=== PATIENT | male | born 1930 | race Caucasian/White ===

== ENCOUNTER 2016-07-20 14:37 | Inpatient (IN) | payer MEDICARE, BC ==
[~2016-07-20] VITALS: Ht 180.3 cm; Wt 70.0 kg
[~2016-07-20 14:37] MED LIST: ACET650T85 PO; AMLO5TAB4 PO; ASPI-535 PO; DEXT1CAP PO; DIVA500T33 PO; DOCU-159 PO; DONE5TAB46 PO; FINA5TAB PO; GABA300C PO; MAGN400O4 PO; MEMA5TAB PO; NA P118E PR; OMEP20CA16 PO; QUET25TA26 PO; SERT25TA PO; SIMV40TA2 PO; SYN75 PO; ZOLP5TAB PO
[2016-07-20] MEDS ORDERED: SOD CHLORIDE 0.9% 1,000 ML IV STA (15:24)
[2016-07-20 15:27] VITALS: Ht 180.3 cm; Wt 70.0 kg
[2016-07-20] MEDS ORDERED: SODIUM CHLORIDE 0.9% 1L BAG IV* STA (15:30)
[2016-07-20] MEDS ORDERED: AMLO2.5T2 PO (16:00)
[2016-07-20] MEDS ORDERED: AMIN30LI PO (16:01)
[2016-07-20] MEDS ORDERED: ASCO500C7 PO (16:03)
[2016-07-20] MEDS ORDERED: UDCOL PO (16:03)
[2016-07-20] MEDS ORDERED: SIMV20TA PO (16:05)
[2016-07-20] MEDS ORDERED: MULTI PO (16:06)
[2016-07-20] MEDS ORDERED: ONDA4TAB8 PO (16:07)
[2016-07-20] MEDS ORDERED: OXCA300T3 PO (16:08)
--- NOTE | 2016-07-20 16:08 | RADRPT ---
PROCEDURE: XR Chest. CLINICAL INDICATION: Weakness. TECHNIQUE: Portable AP supine view of the chest was obtained. COMPARISON: 09/14/2014 FINDINGS: The cardiomediastinal silhouette is minimally enlarged. No acute infiltrates are present, stable le ft lower lobe scarring is suggested. The left costophrenic angle is blunted and may reflect a chron ic left pleural effusion similar to the prior study versus chronic pleural parenchymal reaction. Th ere is no evidence of right pleural effusion. No pneumothorax is present. Old healed right seventh rib fractures again noted. There is no evidence of acute osseous abnormality. Calcification within the aorta is seen. RPTAT:HJJR IMPRESSION: 1. Mild cardiomegaly without congestive heart failure pattern. 2. Likely left lower lobe scarring and pleural parenchymal reaction blunting the left costophrenic a ngle versus a small left pleural effusion, findings similar to the study of 09/14/2014. 3. Aortic atherosclerosis is present. Physician Penelope Date Time Electronically viewed and signed by Physician Penelope on 07/20/2016 16:08 /
[2016-07-20] MEDS ORDERED: PANT40TA3 PO (16:10)
[2016-07-20] MEDS ORDERED: RIS1 PO (16:11)
[2016-07-20] MEDS ORDERED: RISP0.5T21 PO (16:14)
[2016-07-20] MEDS ORDERED: POTA20TA96 PO (16:15)
[2016-07-20] MEDS ORDERED: FURO40TA4 PO (16:15)
--- NOTE | 2016-07-20 16:46 | RADRPT ---
PROCEDURE: Noncontrast CT Head. CLINICAL INDICATION: Altered level of consciousness. TECHNIQUE: Noncontrast CT of the head was obtained. The administered radiation dose was CTDI vol = 45.01 mGy, DLP = 900.28 mGy-cm. One or more of the following dose reduction techniques were used: Au tomated exposure control, Adjustment of the mA and/or kV according to patient size, or Use of iterat viviana reconstruction technique. COMPARISON: There are no similar studies submitted for comparison. FINDINGS: There is moderate generalized cerebral volume loss. There is mild cerebellar volume loss. There is mild to moderate periventricular hypoattenuation suggesting chronic microvascular ischemic changes. There are mild vascular calcifications within the intracranial carotid arteries. There is an empty sella turcica. There is a 5 mm coarse calcification within the right parietal dural likely representing a small meningioma (image 32 series 2). There is no loss of montemayor-white differentiation to suggest acute territorial infarction. There is no acute intracranial hemorrhage or extra-axial fluid collection. There is no mass effect. No midline shift is identified. The patient is status post right lens surgery. The paranasal sinuses are well aerated. No destructive osseous lesion is identified. IMPRESSION: 1. No acute intracranial hemorrhage or extra-axial fluid collection. 2. Moderate cerebral and mild cerebellar volume loss. 3. Mild to moderate chronic microvascular ischemic changes. 4. Probable 5 mm calcified right parietal meningioma. 5. Empty sella turcica. Further findings as detailed above. RPTAT: HVF .Michael Vasquez MD, MD Date Time Electronically viewed and signed by .Michael Vasquez MD, on 07/20/2016 16:46 .F/
[2016-07-20 18:02] LABS: BASOPHILS % 0.3 % (0.0-2.0); EOSINOPHILS # 0.1 10^3/ul (0.0-0.5); HEMATOCRIT 47.6 % (42.0-52.0); HEMOGLOBIN 15.8 g/dl (14.0-18.0); LYMPHOCYTES # 1.1 10^3/ul (0.8-2.9); LYMPHOCYTES % 16.5 % (15.0-51.0); MEAN CORPUSCULAR HGB CONC 33.2 g/dl (32.0-37.0); MEAN CORPUSCULAR VOLUME 93.4 fl (82.0-101.0); MONOCYTE # 0.5 10^3/ul (0.3-0.9); MONOCYTES % 7.4 % (0.0-11.0); NEUTROPHIL # 4.8 10^3/ul (1.6-7.5); NEUTROPHILS % 73.8 % (39.0-77.0); PLATELET COUNT 411 10^3/UL (140-440); UNCORRECTED WBC 6.5 10^3/ul (4.8-10.8); WHITE BLOOD COUNT 6.5 10^3/ul (4.8-10.8)
[2016-07-20 18:03] LABS: CONDITION 1; LH ANALYZER COMMENTS 1
[2016-07-20 18:09] LABS: INR 1.1; PROTIME 14.2 Sec (12.2-14.2); PT RATIO 1.1
[2016-07-20 18:10] LABS: PARTIAL THROMBOPLASTIN TIME 31.5 Sec (25.0-35.0)
[2016-07-20 18:40] LABS: ADD UMIC NO; URINE BILIRUBIN (Dip) NEGATIVE (NEGATIVE); URINE BLOOD (Dip) NEGATIVE (NEGATIVE); URINE COLOR YELLOW (YELLOW); URINE GLUCOSE (Dip) NEGATIVE (NEGATIVE); URINE KETONES (Dip) NEGATIVE (NEGATIVE); URINE LEUKOCYTE ESTERASE (Dip) NEGATIVE (NEGATIVE); URINE NITRITE (Dip) NEGATIVE (NEGATIVE); URINE TOTAL PROTEIN (Dip) NEGATIVE (NEGATIVE); URINE UROBILINOGEN (Dip) 0.2 E.U./dL (0.1-1.0)
[2016-07-20 18:58] LABS: ALBUMIN 3.5 g/dl (3.3-4.9)
[2016-07-20 18:59] LABS: POTASSIUM 4.6 mmol/L (3.5-5.1)
[2016-07-20 19:01] LABS: BILIRUBIN,INDIRECT 0.2 mg/dl (0-1.1); BILIRUBIN,TOTAL 0.2 mg/dl (0.2-1.3); CREATININE 2.17 mg/dl (0.61-1.24)
[2016-07-20 19:02] LABS: ALBUMIN/GLOBULIN RATIO 0.94; CALCIUM 8.5 mg/dl (8.4-10.2); TOTAL PROTEIN 7.2 g/dl (6.1-8.1)
[2016-07-20] MEDS ORDERED: SOD CHLORIDE 0.9% 1,000 ML IV SCH (19:28)
[2016-07-20] MEDS ORDERED: ACETAMINOPHEN 325 MG TAB PO PRN (19:30)
[2016-07-20] MEDS ORDERED: ONDANSETRON 4 MG INJ IV PRN (19:30)
--- NOTE | 2016-07-20 19:33 | ERA ---
ER Documentation Chief Complaint Date/Time DATE: 07/20/16 TIME: 19:30 Chief Complaint aloc not responding like he normally does with nurses, vomited this am HPI This is an 85-year-old male who presents to the emergency room after being brought in by EMS from his halfway for evaluation of generalized weakness and altered mental status. According to the nurses at the halfway this patient has been vomiting and has had diarrhea for the past 3 days. He does have a history of C. difficile colitis. This patient is unable to give a detailed history secondary to his clinical condition at this time. He is alert and oriented to person only. This is his baseline according to halfway notes. ROS All systems reviewed and are negative except as per history of present illness. Medications Home Meds Reported Medications Potassium Chloride* (Potassium Chloride*) 20 Meq Tablet.er, 40 MEQ PO DAILY, TAB.SA 07/20/16 Furosemide* (Furosemide*) 40 Mg Tablet, 40 MG PO DAILY, TAB 07/20/16 Risperidone* (Risperdal*) 0.5 Mg Tablet, 0.5 MG PO DAILY, TAB IN ADDITION TO BEDTIME DOSAGE OF 1.5MG 07/20/16 Risperidone* (Risperdal*) 1 Mg Tablet, 1.5 MG PO QHS, TAB 07/20/16 Pantoprazole* (Protonix*) 40 Mg Tablet.dr, 40 MG PO DAILY, TAB 07/20/16 Oxcarbazepine* (Trileptal*) 300 Mg Tablet, 300 MG PO BID, TAB 07/20/16 Ondansetron Hcl* (Zofran*) 4 Mg Tablet, 4 MG PO TID Y for NAUSEA AND/OR VOMITING , TAB BEFORE MEALS 07/20/16 Multivitamins* (Theragran*) 1 Tab Tab, 1 TAB PO DAILY, TAB 07/20/16 Simvastatin* (Zocor*) 20 Mg Tablet, 20 MG PO QHS, #30 TAB 07/20/16 Ascorbic Acid* (Vitamin C*) 500 Mg Capsule.sa, 500 MG PO DAILY, CAP 07/20/16 Docusate Sodium* (Colace* Liq) 50 Mg/5 Ml Liquid, 100 MG PO DAILY, EA 07/20/16 Amino Acids/Protein Hydrolys (PRO-STAT LIQUID) 30 Ml Liquid.pkt, 30 ML PO DAILY 07/20/16 Amlodipine Besylate* (Norvasc*) 2.5 Mg Tablet, 2.5 MG PO DAILY, TAB 07/20/16 Na Phos,M-B/Na Phos,Di-Ba* (Fleet* Enema) 118 Ml Enema, 118 ML HI every 3 days Y for CONSTIPATION, ENEMA 09/09/14 Magnesium Hydroxide* (Milk Of Magnesia*) 400 Mg/5 Ml Oral.susp, 30 ML PO DAILY Y for CONSTIPATION, ML 01/18/14 Gabapentin* (Neurontin*) 300 Mg Capsule, 300 MG PO TID, CAP 01/18/14 Aspirin Ec (Aspir 81) 81 Mg Tablet.dr, 81 MG PO DAILY, TAB 01/18/14 Acetaminophen (Tylenol 8 Hour) 650 Mg Tablet.sa, 650 MG PO Q8 03/20/11 Levothyroxine Sodium* (Synthroid*) 75 Mcg Tablet, 75 MCG PO DAILY 03/20/11 Finasteride* (Proscar*) 5 Mg Tablet, 5 MG PO DAILY 03/20/11 Discontinued Reported Medications Simvastatin* (Zocor*) 40 Mg Tablet, 40 MG PO HS, TAB 09/09/14 Sertraline Hcl* (Zoloft*) 25 Mg Tablet, 25 MG PO DAILY, TAB 09/09/14 Dextromethorphan Hbr/Quinidine (NUEDEXTA 20-10 MG CAPSULE) 1 Each Capsule, 1 EACH PO BID 09/09/14 Quetiapine Fumarate* (Seroquel*) 25 Mg Tablet, 12.5 MG PO HS, TAB 09/09/14 Docusate Sodium* (Docusate Sodium*) 100 Mg Capsule, 100 MG PO BID, CAP 01/18/14 Zolpidem Tartrate* (Ambien*) 5 Mg Tablet, 5 MG PO HS Y for INSOMNIA, TAB 01/18/14 Omeprazole* (Omeprazole*) 20 Mg Capsule.dr, 20 MG PO DAILY 03/20/11 Memantine* (Namenda*) 5 Mg Tablet, 5 MG PO BID 03/20/11 Divalproex Sodium (Depakote) 500 Mg Tablet.dr, 500 MG PO BID 03/20/11 Amlodipine Besylate* (Norvasc*) 5 Mg Tablet, 5 MG PO DAILY 03/20/11 Donepezil* (Aricept*) 5 Mg Tablet, 5 MG PO HS 03/20/11 Allergies Allergies: Coded Allergies: Penicillins (Verified Allergy, Unknown, 07/20/16) Sulfa (Sulfonamide Antibiotics) (Verified Allergy, Unknown, 07/20/16) PMhx/Soc History of Surgery: Yes (R Hemicolectomy, Gastric Sx) Hx Neurological Disorder: Yes (Dementia) Hx Cardiac Disorders: Yes (HTN, Hyperlipidemia) Hx Psychiatric Problems: Yes (Tardive Dyskinesia, Depression) Smoking Status: Unknown if ever smoked Physical Exam Vitals Vital Signs Date Time Temp Pulse Resp B/P Pulse Ox O2 Delivery O2 Flow Rate FiO2 07/20/16 18:00 75 22 145/83 95 Room Air 07/20/16 16:18 Nasal Cannula 2 07/20/16 16:00 75 22 141/82 95 Room Air 07/20/16 15:27 97.5 78 20 125/79 94 Physical Exam INITIAL VITAL SIGNS: Reviewed by me GENERAL: The patient is frail-appearing older gentleman HEENT: Severely dry mucous membranes, pupils equal, round, and reactive to light. EOMI. There is no scleral icterus. NECK: C-spine is soft and supple, there is no meningismus. There is no cervical lymphadenopathy. LUNGS: Clear to auscultation bilaterally. There are no rales, wheezes or rhonchi. HEART: Regular rate and rhythm, no murmurs, clicks, rubs or gallops. ABDOMEN: Soft, non-tender, non-distended. There are bowel sounds in all four quadrants. No rebound or guarding. EXTREMITIES: There is no peripheral cyanosis or edema. No focal swelling or erythema. NEUROLOGICAL: The patient moves all four extremities with 5/5 strength. Alert and oriented to person only SKIN: Significantly increased skin turgor, there is no apparent rash or petechiae. HEME/LYMPHATIC: There is no evidence of excessive bruising or lymphedema. PSYCHIATRIC: The patient does not appear anxious or depressed. Result Diagram: 07/20/16 1738 07/20/16 1738 Results 24 hrs Laboratory Tests Test 07/20/16 17:30 07/20/16 17:38 Urine Bilirubin NEGATIVE Urine Clarity CLEAR Urine Color YELLOW Urine Glucose NEGATIVE% Urine Hemoglobin NEGATIVE Urine Ketones NEGATIVE Urine Leukocyte Esterase NEGATIVE Urine Nitrite NEGATIVE Urine Specific [place] 1.020 Urine Total Protein NEGATIVE Urine Urobilinogen 0.2 E.U./dL Urine pH 5.5 Activated Partial Thromboplast Time 31.5Sec Alanine Aminotransferase (ALT/SGPT) 26IU/L Albumin 3.5g/dl Albumin/Globulin Ratio 0.94 Alkaline Phosphatase 112IU/L Anion Gap 21 Aspartate Amino Transf (AST/SGOT) 30IU/L Basophils # 0.010^3/ul Basophils % 0.3% Blood Morphology Comment Blood Urea Nitrogen 45mg/dl Calcium Level 8.5mg/dl Carbon Dioxide Level 26mmol/L Chloride Level 117mmol/L Creatine Kinase 157IU/L Creatinine 2.17mg/dl Direct Bilirubin 0.00mg/dl Eosinophils # 0.110^3/ul Eosinophils % 2.0% Globulin 3.70g/dl Glucose Level 104mg/dl Hematocrit 47.6% Hemoglobin 15.8g/dl INR International Normalized Ratio 1.10 Indirect Bilirubin 0.2mg/dl Lactic Acid Level 2.4mmol/L Lipase 64U/L Lymphocytes # 1.110^3/ul Lymphocytes % 16.5% Mean Corpuscular Hemoglobin 31.0pg Mean Corpuscular Hemoglobin Concent 33.2g/dl Mean Corpuscular Volume 93.4fl Mean Platelet Volume 8.0fl Monocytes # 0.510^3/ul Monocytes % 7.4% Neutrophils # 4.810^3/ul Neutrophils % 73.8% Nucleated Red Blood Cells # 0.010^3/ul Nucleated Red Blood Cells % 0.0/100WBC Platelet Count 63986^3/UL Potassium Level 4.6mmol/L Prothrombin Time 14.2Sec Prothrombin Time Ratio 1.1 Red Blood Count 5.1010^6/ul Red Cell Distribution Width 16.0% Sodium Level 159mmol/L Total Bilirubin 0.2mg/dl Total Protein 7.2g/dl Troponin I < 0.012ng/ml White Blood Count 6.510^3/ul Current Medications Medications (Trade) Dose Ordered Sig/Sorin Route PRN Reason Start Time Stop Time Status Last Admin Dose Admin Sodium Chloride (NS) 1,000 ml @ 1,000 mls/hr Q1H STAT IV 07/20/16 15:24 07/20/16 16:23 DC 07/20/16 15:24 Sodium Chloride (NS) 2,170 ml BOLUS OVER 2 HOURS STAT IV* 07/20/16 15:30 2/18/17 15:31 DC 07/20/16 17:00 Procedures/MDM CT head without: 1. No acute intracranial hemorrhage or extra-axial fluid collection. 2. Moderate cerebral and mild cerebellar volume loss. 3. Mild to moderate chronic microvascular ischemic changes. 4. Probable 5 mm calcified right parietal meningioma. 5. Empty sella turcica. Chest X-ray 1V Interpreted by me: Soft Tissue: Cardiomegaly Bones: No acute abnormalities Mediastinum/Cardiac Silhouette/Lungs: Cardiomegaly This 85-year-old male presents to the emergency room for evaluation of altered mental status and generalized weakness. He is normally alert and oriented to person only and he is alert and oriented to person only on my examination. This patient did have a severely dry mucous membranes with increased skin turgor consistent with dehydration. Lab work was obtained including blood and urine cultures. Lab work does confirm my suspicion of dehydration, and this patient also has acute renal failure. This patient was given 2 L of IV normal saline, and was given 1 L of IV D5 half-normal saline I have spoken to this patient's primary care physician, Dr. Steel who is in agreement with the plan for admission, IV fluid hydration, and repeat blood work to assess renal function. This patient had a CT of the head which does not show any acute strokes. This patient is not in a timeframe for TPA. He is hemodynamically stable and appropriate for MedSurg at this time. Departure Diagnosis: Primary Impression: Acute renal failure Additional Impressions: Severe dehydration Hypernatremia Acute prerenal azotemia Condition: JACQUELYN Marquez DO Jul 20, 2016 19:33
[2016-07-20] MEDS ORDERED: DEXTROSE 5%-0.45% NACL 1,000 ML IV ONE (19:34)
[2016-07-20 21:00] VITALS: TEMP 97.7
[2016-07-21 01:35] VITALS: BP 139/63; RESP 16
[2016-07-21] MEDS ORDERED: MAGNESIUM HYDROXIDE 30ML CUP PO PRN (02:30)
[2016-07-21] MEDS ORDERED: NA PHOSPHATE/BIPHOS 133 ML ENEMA PR PRN (02:30)
[2016-07-21] MEDS ORDERED: SOD CHLORIDE 0.45% 1,000 ML IV SCH (02:30)
[2016-07-21] MEDS ORDERED: ALBUTEROL 0.5% (NEB) 2.5 MG/0.5 ML AMP HHN PRN (02:30)
[2016-07-21] MEDS ORDERED: ONDANSETRON 4 MG INJ IV PRN (02:30)
[2016-07-21] MEDS: PANTOPRAZOLE (EC) 40 MG TAB PO SCH (06:19)
[2016-07-21 07:25] LABS: POTASSIUM 3.8 mmol/L (3.5-5.1)
[2016-07-21 07:27] VITALS: BP 151/71; RESP 18
[2016-07-21 07:27] LABS: ALBUMIN/GLOBULIN RATIO 0.9; CREATININE 1.51 mg/dl (0.61-1.24); TOTAL PROTEIN 6.3 g/dl (6.1-8.1)
[2016-07-21 07:28] LABS: CALCIUM 7.5 mg/dl (8.4-10.2); MAGNESIUM 2.5 mg/dl (1.7-2.5)
[2016-07-21 07:32] LABS: BASOPHILS % 0.6 % (0.0-2.0); EOSINOPHILS # 0.2 10^3/ul (0.0-0.5); EOSINOPHILS % 4.3 % (0.0-7.0); HEMATOCRIT 38.3 % (42.0-52.0); HEMOGLOBIN 12.8 g/dl (14.0-18.0); LYMPHOCYTES # 1.3 10^3/ul (0.8-2.9); LYMPHOCYTES % 27.5 % (15.0-51.0); MEAN CORPUSCULAR HEMOGLOBIN 31.1 pg (29.0-33.0); MEAN CORPUSCULAR HGB CONC 33.3 g/dl (32.0-37.0); MEAN CORPUSCULAR VOLUME 93.2 fl (82.0-101.0); MEAN PLATELET VOLUME 7.8 fl (7.4-10.4); MONOCYTE # 0.5 10^3/ul (0.3-0.9); MONOCYTES % 11.6 % (0.0-11.0); NEUTROPHIL # 2.6 10^3/ul (1.6-7.5); PLATELET COUNT 360 10^3/UL (140-440); RED BLOOD COUNT 4.11 10^6/ul (4.70-6.10); RED CELL DISTRIBUTION WIDTH 15.8 % (11.5-14.5); UNCORRECTED WBC 4.6 10^3/ul (4.8-10.8); WHITE BLOOD COUNT 4.6 10^3/ul (4.8-10.8)
[2016-07-21 07:39] LABS: CONDITION 1; LH ANALYZER COMMENTS 1
--- NOTE | 2016-07-21 07:55 | RADRPT ---
PROCEDURE: XR Chest. CLINICAL INDICATION: COUGH TECHNIQUE: Portable single view of the chest COMPARISON: 07/20 FINDINGS: Cardiomegaly and ectatic and tortuous aorta again seen. Lung volumes are slightly improved compared with prior with improved aeration of the left lower lobe. No focal infiltrate or pleural effusion. No overt congestive heart failure. IMPRESSION: Improved lung volumes. RPTAT: HLBE Josee Jo Physician Date Time Electronically viewed and signed by Josee Jo, Physician on 07/21/2016 07:55 DERRICK/
[2016-07-21] MEDS: CEFTRIAXONE 1 GM/50 ML (PMX) 50 ML IVPB SCH (10:07)
[2016-07-21] MEDS: DOCUSATE SODIUM 10 MG/ML (10ML CUP) PO SCH (10:07)
[2016-07-21] MEDS: ASPIRIN (EC) 81 MG TAB PO SCH (10:07)
[2016-07-21] MEDS: ASCORBIC ACID 500 MG TAB PO SCH (10:08)
[2016-07-21] MEDS: MULTIVITAMINS THERAPEUTIC TAB PO SCH (10:08)
[2016-07-21] MEDS: AMLODIPINE 2.5 MG TAB PO SCH (10:08)
[2016-07-21] MEDS: FINASTERIDE 5 MG TAB PO SCH (10:09)
[2016-07-21] MEDS: GABAPENTIN 300 MG CAP PO SCH ×3 (10:09→20:54)
[2016-07-21] MEDS: LEVOTHYROXINE 75 MCG TAB PO SCH (10:18)
[2016-07-21] MEDS: DEXTROSE 5% 1,000 ML IV SCH (15:53)
--- NOTE | 2016-07-21 16:51 | HP ---
DATE OF ADMISSION: 07/20/2016 CHIEF COMPLAINT AND HISTORY OF PRESENT ILLNESS: The patient is an 85-year-old gentleman who was bro ught in from the convalescent home with chief complaint of increasing generalized weakness, altered mental status, nausea, vomiting, diarrhea for the past 3 days. He has a prior history of C. dif col itis. His renal functions are stable about a week ago with a BUN of 14, creatinine 0.88. Test for C. diff done about a week ago was also negative. MEDICATIONS: Include: 1. Lasix. 2. Potassium. 3. Risperidone. 4. Pantoprazole. 5. Zofran. 6. Simvastatin. 7. Ascorbic acid. 8. Amlodipine. 9. Magnesium hydroxide. 10. Gabapentin. 11. Aspirin. 12. Levothyroxine. 13. Finasteride. ALLERGIES 1. PENICILLIN. 2. SULFA. PRIOR SURGERIES: Include right hemicolectomy, and he has long history of hypertension and hyperlipi demia. 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 Prior history of smoking. No histor y of alcohol abuse. He also has a progressive decline in his mental status. PHYSICAL EXAMINATION: GENERAL: The patient was found to be very lethargic. VITAL SIGNS: Blood pressure 126/80, afebrile. O2 sat 97% on 2 liters. HEENT: Head normocephalic. Moderate pallor without cyanosis. Tongue is coated, dry. NECK: Supple. No thyromegaly, bruits , or lymphadenopathy. CHEST: Revealed decreased breath sounds at the bases. HEART: S1, S2 heard with no definite gallops or murmurs. ABDOMEN: Soft, nontender. No hepatosplenomegaly, no rebound or guarding. EXTREMITIES: No edema. Stasis dermatitis, both lower extremities. Homans sign is negative. LABORATORY DATA: Sodium 159, potassium 4.6, BUN 45, creatinine 2.17. WBC 6.5, hematocrit 47.6, marv telet count 411,000. UA shows negative for ketones or nitrites. Chest x-ray done showed mild cardi omegaly, left lobe scarring noted, possible pleural effusion, left. CT of the brain shows no acute bleed, calcified right parietal meningioma. IMPRESSION: 1. Delirium with encephalopathy, likely related to severe hypernatremia with acute renal failure, m ostly prerenal component. 2. Possible underlying sepsis with increased lactic acidosis. 3. Chronic obstructive pulmonary disease. 4. Moderate dementia. 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 PLAN: Will start the patient on intravenous hydration. Closely observe for signs of aspiration. I ncrease free water intake. Empiric antibiotic therapy pending cultures. Closely observe for signs of failure and follow his condition along. Dictated By: CEZAR CASIANO MD SR/NTS Conf#: [id number] DID#: [id number]
[2016-07-21 20:12] VITALS: BP 152/80; RESP 16
[2016-07-21] MEDS: ATORVASTATIN 10 MG TAB PO SCH (20:54)
[2016-07-21] MEDS ORDERED: NON-FORMULARY/PATIENT OWN MED (Simvastatin* (Zocor*) 20 MG) PO SCH (21:00)
[2016-07-22] MEDS: DEXTROSE 5% 1,000 ML IV SCH ×3 (03:50→22:08)
[2016-07-22] MEDS: PANTOPRAZOLE (EC) 40 MG TAB PO SCH (05:44)
[2016-07-22 06:39] LABS: POTASSIUM 4.6 mmol/L (3.5-5.1)
[2016-07-22 06:41] LABS: CREATININE 1.04 mg/dl (0.61-1.24)
[2016-07-22 06:42] LABS: CALCIUM 8.3 mg/dl (8.4-10.2); MAGNESIUM 2.6 mg/dl (1.7-2.5)
[2016-07-22 07:39] VITALS: BP 160/88; RESP 18
--- NOTE | 2016-07-22 07:46 | RADRPT ---
PROCEDURE: XR Chest 1 view. CLINICAL INDICATION: Shortness of breath, pneumonia TECHNIQUE: AP views of the chest were obtained. COMPARISON: Yesterday FINDINGS: The heart is large. Calcified atherosclerosis is noted in the aorta. The lungs are hyperexpanded. Diffuse mild interstitial prominence in both lungs is unchanged. Linear scarring or atelectasis at the left lung base is stable. No consolidations are identified. No pneumothorax is seen. The osse ous structures are unchanged. IMPRESSION: Cardiomegaly with calcified atherosclerosis in the aorta. Hyperexpanded lungs with diffuse mild interstitial prominence in both lungs. Interstitial prominenc e could be chronic. Findings could reflect COPD. Linear atelectasis or scarring at the left lung base. RPTAT: AA .Yannick Lebron MD, Date Time Electronically viewed and signed by .Yannick Lebron MD, on 07/22/2016 07:46 .P/
[2016-07-22] MEDS ORDERED: VANCOMYCIN IV PER PHARMACY XX SCH (08:30)
[2016-07-22] MEDS ORDERED: VANCOMYCIN 1.75 GM in NS 500 ML IVPB SCH (09:30)
[2016-07-22] MEDS: CEFTRIAXONE 1 GM/50 ML (PMX) 50 ML IVPB SCH (09:39)
[2016-07-22] MEDS: DOCUSATE SODIUM 10 MG/ML (10ML CUP) PO SCH (09:39)
[2016-07-22] MEDS: ASCORBIC ACID 500 MG TAB PO SCH (09:39)
[2016-07-22] MEDS: MULTIVITAMINS THERAPEUTIC TAB PO SCH (09:39)
[2016-07-22] MEDS: GABAPENTIN 300 MG CAP PO SCH ×3 (09:40→21:41)
[2016-07-22] MEDS: FINASTERIDE 5 MG TAB PO SCH (09:40)
[2016-07-22] MEDS: ASPIRIN (EC) 81 MG TAB PO SCH (09:40)
[2016-07-22] MEDS: AMLODIPINE 2.5 MG TAB PO SCH (09:40)
[2016-07-22] MEDS: LEVOTHYROXINE 75 MCG TAB PO SCH (09:40)
--- NOTE | 2016-07-22 10:10 | PQ ---
Date/Time of Note Date/Time of Note DATE: 07/22/16 TIME: 10:04 Physician Query Documentation Clarification Dear Dr. Steel, A review of the medical record found a need for documentation clarification. H & P - Delirium with encephalopathy, likely related to severe hypernatremia with acute renal failure, mostly prerenal component. Please clarify/specify the above diagnosis( if known ) being treated. To facilitate accurate and complete coding, please favian ( x ) the suspected diagnosis that apply: ( ) Metabolic encephalopathy ( ) Toxic encephalopathy ( ) unable to determine ( ) Others Please provide your response by clicking edit document, making your choice ( x ), click ok/save and finally click sign. You may also document your response on your progress notes. Thank you for your time. Tolu Uribe RN, BSN, CCS, CCDS Clinical Engine Assembler Health Information Management, [facility] and Coding Services [phone] Room # 1525 - Coding [address]~ [address] TOLU URIBE Jul 22, 2016 10:10
[2016-07-22 10:33] LABS: HEMATOCRIT 44.4 % (42.0-52.0); HEMOGLOBIN 14.1 g/dl (14.0-18.0); LYMPHOCYTES # 1.3 10^3/ul (0.8-2.9); LYMPHOCYTES % 31.7 % (15.0-51.0); MEAN CORPUSCULAR HEMOGLOBIN 30.7 pg (29.0-33.0); MEAN CORPUSCULAR HGB CONC 31.8 g/dl (32.0-37.0); MEAN CORPUSCULAR VOLUME 96.5 fl (82.0-101.0); MEAN PLATELET VOLUME 10.6 fl (7.4-10.4); MONOCYTES % 13.9 % (0.0-11.0); NEUTROPHILS % 48.7 % (39.0-77.0); PLATELET COUNT 290 10^3/UL (140-440); RED CELL DISTRIBUTION WIDTH 15.3 % (11.5-14.5)
[2016-07-22 10:34] LABS: EOSINOPHILS # 0.2 10^3/ul (0.0-0.5); MONOCYTE # 0.6 10^3/ul (0.3-0.9)
--- NOTE | 2016-07-22 11:01 | PN ---
DATE: 07/22/2016 CHIEF COMPLAINT: The patient is more responsive today, occasional cough, no abdominal pain, no ches t pain or shortness of breath. On exam, patient is more responsive, recognized me. OBJECTIVE: VITAL SIGNS: Temperature 97.8, blood pressure 160/88, respiration 20 per minute, O2 sats 96% on 2 l iters. HEENT: Head normocephalic. CHEST: Revealed a few crackles. HEART: S1, S2 with no gallops. ABDOMEN: Soft, nontender, no hepatosplenomegaly. EXTREMITIES: No edema. LABORATORY DATA: BUN 24, creatinine 1.04. Sodium 157, magnesium 2.6. Blood cultures growing gram- positive cocci in clusters. IMPRESSION: 1. Bacteremia, ____ MRSA disease. 2. COPD. 3. Moderate dementia. 4. Hypernatremia with acute renal failure, improving. PLAN: We will start the patient on vancomycin pending further typing of the sensitivities. Follow up labs in a.m. Dictated By: CEZAR CASIANO MD, SR/PATSY Conf#: [id number] DID#: [id number]
[2016-07-22 20:27] VITALS: BP 137/67; RESP 20
[2016-07-22] MEDS: ATORVASTATIN 10 MG TAB PO SCH (21:41)
[2016-07-23] MEDS: PANTOPRAZOLE (EC) 40 MG TAB PO SCH (05:25)
[2016-07-23 06:54] LABS: BASOPHILS % 0.4 % (0.0-2.0); EOSINOPHILS # 0.2 10^3/ul (0.0-0.5); EOSINOPHILS % 3.7 % (0.0-7.0); HEMATOCRIT 39.9 % (42.0-52.0); HEMOGLOBIN 13.4 g/dl (14.0-18.0); LYMPHOCYTES # 1.7 10^3/ul (0.8-2.9); LYMPHOCYTES % 33.6 % (15.0-51.0); MEAN CORPUSCULAR HEMOGLOBIN 30.9 pg (29.0-33.0); MEAN CORPUSCULAR HGB CONC 33.6 g/dl (32.0-37.0); MEAN CORPUSCULAR VOLUME 91.9 fl (82.0-101.0); MONOCYTE # 0.6 10^3/ul (0.3-0.9); MONOCYTES % 12.4 % (0.0-11.0); NEUTROPHIL # 2.5 10^3/ul (1.6-7.5); NEUTROPHILS % 49.9 % (39.0-77.0); PLATELET COUNT 392 10^3/UL (140-440); RED BLOOD COUNT 4.34 10^6/ul (4.70-6.10); RED CELL DISTRIBUTION WIDTH 14.9 % (11.5-14.5)
[2016-07-23 07:05] LABS: CREATININE 0.96 mg/dl (0.61-1.24)
[2016-07-23 07:06] LABS: CALCIUM 7.9 mg/dl (8.4-10.2)
[2016-07-23 07:08] LABS: POTASSIUM 2.8 mmol/L (3.5-5.1)
[2016-07-23 07:16] LABS: CONDITION 1; LH ANALYZER COMMENTS 1
[2016-07-23 08:53] VITALS: BP 179/84; RESP 18
[2016-07-23] MEDS: DOCUSATE SODIUM 10 MG/ML (10ML CUP) PO SCH (09:00)
[2016-07-23] MEDS ORDERED: POTASSIUM CHLORIDE 250 ML IVPB SCH (09:30)
[2016-07-23] MEDS: MULTIVITAMINS THERAPEUTIC TAB PO SCH (10:25)
[2016-07-23] MEDS: FINASTERIDE 5 MG TAB PO SCH (10:25)
[2016-07-23] MEDS: LEVOTHYROXINE 75 MCG TAB PO SCH (10:25)
[2016-07-23] MEDS: ASPIRIN (EC) 81 MG TAB PO SCH (10:25)
[2016-07-23] MEDS: GABAPENTIN 300 MG CAP PO SCH ×3 (10:25→21:32)
[2016-07-23] MEDS: ASCORBIC ACID 500 MG TAB PO SCH (10:26)
[2016-07-23] MEDS: CEFTRIAXONE 1 GM/50 ML (PMX) 50 ML IVPB SCH (10:26)
[2016-07-23] MEDS: AMLODIPINE 2.5 MG TAB PO SCH (10:26)
--- NOTE | 2016-07-23 11:08 | PN ---
DATE: 07/23/2016 OBJECTIVE: GENERAL: The patient appears to be more responsive, awake, alert, conversant, not oriented to place or time. VITAL SIGNS: Temperature 98.2, blood pressure 137/67, O2 sat is 97% on room air. HEENT: Head normocephalic. No pallor or cyanosis. CHEST: Few crackles heard at the bases. HEART: S1, S2 heard with no definite gallops. EXTREMITIES: No edema. Stasis dermatitis. LABORATORY DATA: WBC count 5.0, hematocrit 39.9. Sodium 149, potassium 2.8, BUN 12, creatinine 0.9 6. IMPRESSION: 1. Staph bacteremia, query MRSA on vancomycin. 2. Chronic obstructive pulmonary disease. 3. Severe hypokalemia. 4. Moderate dementia. 5. Hypernatremia with acute renal failure, significantly improved. PLAN: We will continue gentle hydration, vancomycin and replace potassium and recheck the labs in a .m. Dictated By: CEZAR CASIANO MD, SR/PATSY Conf#: [id number] DID#: [id number]
[2016-07-23] MEDS: VANCOMYCIN 1.5 GM in SOD CHLORIDE 0.9% 250 ML IVPB SCH (12:51)
[2016-07-23] MEDS: DEXTROSE 5% 1,000 ML IV SCH ×2 (17:00→21:43)
[2016-07-23 19:34] VITALS: BP 131/67; RESP 20
[2016-07-23] MEDS: ATORVASTATIN 10 MG TAB PO SCH (21:32)
[2016-07-24] MEDS: DEXTROSE 5% 1,000 ML IV SCH (05:30)
[2016-07-24] MEDS: PANTOPRAZOLE (EC) 40 MG TAB PO SCH (05:55)
[2016-07-24 06:05] LABS: POTASSIUM 3.3 mmol/L (3.5-5.1)
[2016-07-24 06:08] LABS: CALCIUM 7.9 mg/dl (8.4-10.2); CREATININE 0.99 mg/dl (0.61-1.24)
[2016-07-24 06:09] LABS: MAGNESIUM 2.4 mg/dl (1.7-2.5)
[2016-07-24 07:15] VITALS: BP 169/79; RESP 18
[2016-07-24] MEDS: POTASSIUM CHLORIDE 40 MEQ in DEXTROSE 5% 1,000 ML IV SCH ×3 (09:04→21:49)
[2016-07-24 09:08] LABS: BASOPHILS % 0.5 % (0.0-2.0); EOSINOPHILS # 0.3 10^3/ul (0.0-0.5); EOSINOPHILS % 4.3 % (0.0-7.0); HEMATOCRIT 41.7 % (42.0-52.0); HEMOGLOBIN 14.2 g/dl (14.0-18.0); LYMPHOCYTES # 2.2 10^3/ul (0.8-2.9); LYMPHOCYTES % 34.5 % (15.0-51.0); MEAN CORPUSCULAR HEMOGLOBIN 31.1 pg (29.0-33.0); MEAN CORPUSCULAR VOLUME 91.6 fl (82.0-101.0); MEAN PLATELET VOLUME 8.5 fl (7.4-10.4); MONOCYTE # 0.8 10^3/ul (0.3-0.9); MONOCYTES % 12.5 % (0.0-11.0); NEUTROPHIL # 3.1 10^3/ul (1.6-7.5); NEUTROPHILS % 48.2 % (39.0-77.0); PLATELET COUNT 405 10^3/UL (140-440); RED BLOOD COUNT 4.55 10^6/ul (4.70-6.10); RED CELL DISTRIBUTION WIDTH 14.6 % (11.5-14.5); UNCORRECTED WBC 6.4 10^3/ul (4.8-10.8); WHITE BLOOD COUNT 6.4 10^3/ul (4.8-10.8)
[2016-07-24 09:10] LABS: CONDITION 1; LH ANALYZER COMMENTS 1
[2016-07-24] MEDS: LEVOTHYROXINE 75 MCG TAB PO SCH (09:18)
[2016-07-24] MEDS: AMLODIPINE 2.5 MG TAB PO SCH (09:18)
[2016-07-24] MEDS: DOCUSATE SODIUM 10 MG/ML (10ML CUP) PO SCH (09:18)
[2016-07-24] MEDS: MULTIVITAMINS THERAPEUTIC TAB PO SCH (09:18)
[2016-07-24] MEDS: ASCORBIC ACID 500 MG TAB PO SCH (09:18)
[2016-07-24] MEDS: GABAPENTIN 300 MG CAP PO SCH ×3 (09:18→21:07)
[2016-07-24] MEDS: ASPIRIN (EC) 81 MG TAB PO SCH (09:18)
[2016-07-24] MEDS: CEFTRIAXONE 1 GM/50 ML (PMX) 50 ML IVPB SCH (09:18)
[2016-07-24] MEDS: FINASTERIDE 5 MG TAB PO SCH (09:18)
[2016-07-24] MEDS: ONDANSETRON 4 MG INJ IV PRN (09:23)
[2016-07-24] MEDS: VANCOMYCIN 1.5 GM in SOD CHLORIDE 0.9% 250 ML IVPB SCH (09:24)
[2016-07-24 09:30] VITALS: BP 139/71; PULSE 64
--- NOTE | 2016-07-24 09:47 | PN ---
DATE: 07/24/2016 SUBJECTIVE: The patient more responsive, complains of nausea, attempting to vomit, but no vomitus n oted. OBJECTIVE: VITAL SIGNS: Temperature 97.6, blood pressure 169/79, respirations 20 per minute, O2 sat is 97% on room air. CHEST: Clinically clear. ABDOMEN: Soft, nontender, no hepatosplenomegaly. EXTREMITIES: No edema. LABORATORY DATA: Sodium 148, potassium 3.3, BUN 7, creatinine 0.99. WBC count 5.0, hematocrit 39. Blood cultures: No growth. Urine culture is negative. IMPRESSION: 1. Delirium with Staphylococcus bacteremia, improving. 2. Hypernatremia with acute renal failure, improving. Presently, patient is hypokalemic. 3. Moderate dementia. 4. Chronic obstructive pulmonary disease. PLAN: Will continue vancomycin for now, await further cultures. Replace potassium. Recheck labs i n a.m. Dictated By: CEZAR CASIANO MD, SR/PATSY Conf#: [id number] DID#: [id number]
[2016-07-24] MEDS: ENOXAPARIN 30 MG/0.3 ML SYG SC SCH (10:33)
[2016-07-24 19:26] VITALS: BP 138/67; RESP 18
[2016-07-24] MEDS: ATORVASTATIN 10 MG TAB PO SCH (21:07)
[2016-07-25] MEDS: ACETAMINOPHEN 500 MG TAB PO PRN (00:09)
[2016-07-25 06:16] LABS: POTASSIUM 3.6 mmol/L (3.5-5.1)
[2016-07-25 06:19] LABS: CREATININE 1.01 mg/dl (0.61-1.24)
[2016-07-25 06:20] LABS: CALCIUM 8.1 mg/dl (8.4-10.2)
[2016-07-25] MEDS: PANTOPRAZOLE (EC) 40 MG TAB PO SCH (06:31)
[2016-07-25 07:11] LABS: HEMATOCRIT 38.5 % (42.0-52.0); HEMOGLOBIN 12.5 g/dl (14.0-18.0); MEAN CORPUSCULAR HEMOGLOBIN 30.3 pg (29.0-33.0); MEAN CORPUSCULAR HGB CONC 32.5 g/dl (32.0-37.0); MEAN CORPUSCULAR VOLUME 93.4 fl (82.0-101.0); PLATELET COUNT 312 10^3/UL (140-440); RED BLOOD COUNT 4.12 10^6/ul (4.70-6.10); RED CELL DISTRIBUTION WIDTH 14.8 % (11.5-14.5); WHITE BLOOD COUNT 5.8 10^3/ul (4.8-10.8)
[2016-07-25 07:12] LABS: BASOPHIL # 0.1 10^3/ul (0.0-0.1); BASOPHILS % 0.9 % (0.0-2.0); EOSINOPHILS # 0.4 10^3/ul (0.0-0.5); EOSINOPHILS % 6.2 % (0.0-7.0); LYMPHOCYTES # 2.5 10^3/ul (0.8-2.9); MEAN PLATELET VOLUME 10.7 fl (7.4-10.4); MONOCYTE # 0.7 10^3/ul (0.3-0.9); MONOCYTES % 12.3 % (0.0-11.0); NEUTROPHIL # 2.2 10^3/ul (1.6-7.5); NEUTROPHILS % 37.9 % (39.0-77.0)
[2016-07-25 08:13] VITALS: BP 133/60; RESP 20
[2016-07-25] MEDS: ASPIRIN (EC) 81 MG TAB PO SCH (09:23)
[2016-07-25] MEDS: ASCORBIC ACID 500 MG TAB PO SCH (09:23)
[2016-07-25] MEDS: MULTIVITAMINS THERAPEUTIC TAB PO SCH (09:23)
[2016-07-25] MEDS: GABAPENTIN 300 MG CAP PO SCH ×3 (09:23→21:50)
[2016-07-25] MEDS: LEVOTHYROXINE 75 MCG TAB PO SCH (09:23)
[2016-07-25] MEDS: DOCUSATE SODIUM 10 MG/ML (10ML CUP) PO SCH (09:24)
[2016-07-25] MEDS: AMLODIPINE 2.5 MG TAB PO SCH (09:24)
[2016-07-25] MEDS: FINASTERIDE 5 MG TAB PO SCH (09:24)
[2016-07-25] MEDS: CEFTRIAXONE 1 GM/50 ML (PMX) 50 ML IVPB SCH (09:25)
[2016-07-25] MEDS: ENOXAPARIN 30 MG/0.3 ML SYG SC SCH (09:27)
[2016-07-25] MEDS: VANCOMYCIN 1.5 GM in SOD CHLORIDE 0.9% 250 ML IVPB SCH (09:29)
[2016-07-25] MEDS: POTASSIUM CHLORIDE 40 MEQ in DEXTROSE 5% 1,000 ML IV SCH ×2 (09:33→23:19)
--- NOTE | 2016-07-25 12:49 | PN ---
DATE: 07/25/2016 SUBJECTIVE: The patient is lethargic today. When questioned, he has got a mild cough, but no short ness of breath, no chest pain. PHYSICAL EXAMINATION: GENERAL: The patient is lethargic. VITAL SIGNS: Temperature 97.5, blood pressure 132/60, O2 sats 94% on room air. HEENT: Head normocephalic. Mild pallor, no cyanosis. CHEST: Revealed a few crackles heard at the bases. HEART: S1, S2 heard with no definite gallops. EXTREMITIES: No edema. Stasis dermatitis. LABORATORY DATA: WBC count 5.8, hematocrit 38.5, platelet count 312,000. Sodium 145, potassium 3.6 , BUN 10, creatinine 1.01. Blood cultures negative. IMPRESSION: 1. Delirium with bacteremia, improving. 2. Hypernatremia with acute renal failure, improved. Borderline potassium levels. 3. Chronic obstructive pulmonary disease. 4. Moderate dementia. 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 Will follow up labs in a.m. Dictated By: CEZAR CASIANO MD, SR/NTS Conf#: [id number] DID#: [id number]
[2016-07-25 19:43] VITALS: BP 142/66; RESP 16
[2016-07-25] MEDS: ATORVASTATIN 10 MG TAB PO SCH (21:50)
[2016-07-26] MEDS: POTASSIUM CHLORIDE 40 MEQ in DEXTROSE 5% 1,000 ML IV SCH ×2 (01:15→12:04)
[2016-07-26] MEDS: PANTOPRAZOLE (EC) 40 MG TAB PO SCH (05:44)
[2016-07-26 06:20] LABS: ADD SCAN DIFF NO
[2016-07-26 06:47] LABS: POTASSIUM 3.5 mmol/L (3.5-5.1)
[2016-07-26 06:49] LABS: CREATININE 1.01 mg/dl (0.61-1.24)
[2016-07-26 06:49] LABS: BASOPHIL # 0.1 10^3/ul (0.0-0.1); BASOPHILS % 0.7 % (0.0-2.0); EOSINOPHILS # 0.5 10^3/ul (0.0-0.5); EOSINOPHILS % 6.7 % (0.0-7.0); HEMATOCRIT 41.4 % (42.0-52.0); HEMOGLOBIN 13.6 g/dl (14.0-18.0); LYMPHOCYTES # 2.4 10^3/ul (0.8-2.9); LYMPHOCYTES % 36.3 % (15.0-51.0); MEAN CORPUSCULAR HEMOGLOBIN 30.3 pg (29.0-33.0); MEAN CORPUSCULAR HGB CONC 32.9 g/dl (32.0-37.0); MEAN CORPUSCULAR VOLUME 92.2 fl (82.0-101.0); MEAN PLATELET VOLUME 10.7 fl (7.4-10.4); MONOCYTE # 0.9 10^3/ul (0.3-0.9); MONOCYTES % 13.2 % (0.0-11.0); NEUTROPHIL # 2.9 10^3/ul (1.6-7.5); NEUTROPHILS % 42.7 % (39.0-77.0); PLATELET COUNT 348 10^3/UL (140-415); RED BLOOD COUNT 4.49 10^6/ul (4.70-6.10); RED CELL DISTRIBUTION WIDTH 14.9 % (11.5-14.5); WHITE BLOOD COUNT 6.7 10^3/ul (4.8-10.8)
[2016-07-26 06:50] LABS: CALCIUM 8.6 mg/dl (8.4-10.2)
[2016-07-26 06:51] LABS: MAGNESIUM 2.4 mg/dl (1.7-2.5)
[2016-07-26 08:33] VITALS: BP 170/76; RESP 20
[2016-07-26] MEDS: ASPIRIN (EC) 81 MG TAB PO SCH (09:29)
[2016-07-26] MEDS: CEFTRIAXONE 1 GM/50 ML (PMX) 50 ML IVPB SCH (09:29)
[2016-07-26] MEDS: DOCUSATE SODIUM 10 MG/ML (10ML CUP) PO SCH (09:29)
[2016-07-26] MEDS: LEVOTHYROXINE 75 MCG TAB PO SCH (09:29)
[2016-07-26] MEDS: GABAPENTIN 300 MG CAP PO SCH ×2 (09:29→12:41)
[2016-07-26] MEDS: FINASTERIDE 5 MG TAB PO SCH (09:29)
[2016-07-26 09:30] VITALS: BP 158/77; PULSE 92
[2016-07-26] MEDS: MULTIVITAMINS THERAPEUTIC TAB PO SCH (09:30)
[2016-07-26] MEDS: AMLODIPINE 2.5 MG TAB PO SCH (09:30)
[2016-07-26] MEDS: ASCORBIC ACID 500 MG TAB PO SCH (09:30)
[2016-07-26] MEDS: ENOXAPARIN 30 MG/0.3 ML SYG SC SCH (09:38)
[2016-07-26] MEDS: ACETAMINOPHEN 500 MG TAB PO PRN (09:41)
[2016-07-26] MEDS: VANCOMYCIN 1.5 GM in SOD CHLORIDE 0.9% 250 ML IVPB SCH (10:40)
[2016-07-26] MEDS: ONDANSETRON 4 MG INJ IV PRN (12:41)
--- NOTE | 2016-07-26 14:29 | DS ---
DATE OF ADMISSION: 07/20/2016 DATE OF DISCHARGE: 07/26/2016 FINAL DIAGNOSES: 1. Delirium secondary to Staphylococcal bacteremia. 2. Severe hypernatremia with acute renal failure with prerenal component, resolved. 3. Chronic obstructive pulmonary disease. 4. Moderate dementia. 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 HOSPITAL COURSE: The patient is an 85-year-old gentleman brought in from the convalescent home with chief complaints of increasing generalized weakness, altered mental status, nausea, vomiting, diarr hea for the past 3 days with prior history of Clostridium difficile colitis. Renal functions are st able about a week prior. The patient was found to be very lethargic, afebrile. Initial sodium was 159, potassium 4.6, BUN 45, creatinine 2.17. CT scan of the brain showed no evidence of acute bleed . Chest x-ray showed scarring in the left lobe. Patient was begun on empiric antibiotic therapy wi th vancomycin and ceftriaxone, and the blood cultures were positive for coag negative staph and repe at blood cultures on July 23 were negative. The patient continued to gradually improve, renal function improved as well. Chest x-ray did not show any evidence of pneumonia. More likely findin gs of COPD. Urine cultures remained negative and the patient was discharged back to [facility] in much improved condition, and he will be followed at the facility by me over the course of the next 2 weeks. Dictated By: CEZAR CASIANO MD SR/NTS Conf#: [id number] DID#: [id number]
[2016-07-26 16:53] VITALS: BP 152/70; PULSE 60; RESP 20
== END 2016-07-26 18:10 | DRG 682 ==
LOC: E/R 14:37 → MS2 19:29
PROVIDERS: ADMIT Internal Medicine; ATTEND Internal Medicine
DX: N17.9 Acute kidney failure, unspecified (principal); G93.41 Metabolic encephalopathy; E87.0 Hyperosmolality and hypernatremia; R78.81 Bacteremia; J44.9 Chronic obstructive pulmonary disease, unspecified; F03.90 Unspecified dementia, unspecified severity, without behavioral disturbance, psychotic disturbance, mood disturbance, and anxiety; E86.0 Dehydration; B95.8 Unspecified staphylococcus as the cause of diseases classified elsewhere; E87.6 Hypokalemia
CPT/HCPCS: 70450; 71010; 80048; 80053; 80202; 81003; 82550; 82553; 83605; 83690; 83735; 83880; 84145; 84484; 85025; 85610; 85730; 87040; 87045; 87081; 87086; 93005; 96360; 96361; J0696; J1650; J2405; J3370; J3480; J7030; J7040; J7042; J7050; J7070

== ENCOUNTER 2018-02-12 22:06 | Inpatient (IN) | END 2018-02-20 16:46 | DRG 300 ==